=== PATIENT | male | born 1980 ===

== ENCOUNTER 2018-05-17 08:41 | Emergency (ER) | payer OTHER ==
[~2018-05-17] VITALS: Ht 180.3 cm; Wt 141.0 kg
[2018-05-17 08:48] VITALS: BP 143/95
[2018-05-17] MEDS ORDERED: DEXAMETHASONE 4 MG TABLET PO ONE (10:00)
[2018-05-17] MEDS ORDERED: DEXAMETHASONE 4 MG TABLET ONE (10:13)
== END 2018-05-17 10:23 | disposition home or self-care (01) ==
LOC: ED 10:17
DX: J02.9 Acute pharyngitis, unspecified (principal)
CPT/HCPCS: 99283

== ENCOUNTER 2018-08-23 11:36 | Emergency (ER) | payer OTHER ==
[~2018-08-23] VITALS: Ht 177.8 cm; Wt 145.5 kg
[2018-08-23 11:43] VITALS: BP 146/92
--- NOTE | 2018-08-23 12:08 | NUR ---
LUQ PAIN FOR TWO DAYS AND CONCERNED ABOUT A LUMP HE COULD FEEL
== END 2018-08-23 12:19 | disposition home or self-care (01) ==
LOC: ED 12:10
DX: K43.9 Ventral hernia without obstruction or gangrene (principal); R10.12 Left upper quadrant pain
CPT/HCPCS: 99281